=== PATIENT | female | born 1985 | race Caucasian/White ===

== ENCOUNTER 2017-10-16 10:44 | Emergency (ER) | payer BC | END 2017-10-16 12:16 | disposition home or self-care (01) | LOC: ERS 10:44 | DX: F41.9 Anxiety disorder, unspecified (principal); Z79.899 Other long term (current) drug therapy | CPT/HCPCS: 93005 ==

== ENCOUNTER 2020-03-20 10:45 | Outpatient (CLI) | payer BC | END 2020-03-20 10:46 | disposition home or self-care (01) | LOC: TBSIIMAG 10:45 | PROVIDERS: ATTEND Neurological Surgery | DX: M54.5 Low back pain (principal); R29.6 Repeated falls; R29.898 Other symptoms and signs involving the musculoskeletal system; M47.817 Spondylosis without myelopathy or radiculopathy, lumbosacral region; M51.26 Other intervertebral disc displacement, lumbar region; M51.36 Other intervertebral disc degeneration, lumbar region; M51.27 Other intervertebral disc displacement, lumbosacral region; M48.07 Spinal stenosis, lumbosacral region; Z98.890 Other specified postprocedural states | CPT/HCPCS: 72100; 72148 ==

== ENCOUNTER 2023-01-26 15:55 | Outpatient (CLI) | payer BC | END 2023-01-26 15:56 | disposition home or self-care (01) | LOC: SCSRAD 15:55 | PROVIDERS: ATTEND Internal Medicine Rheumatology | DX: M46.1 Sacroiliitis, not elsewhere classified (principal) | CPT/HCPCS: 72202 ==

== ENCOUNTER 2024-01-24 08:59 | Outpatient (CLI) | payer BC | END 2024-01-24 09:00 | disposition home or self-care (01) | LOC: SCSRAD 08:59 | PROVIDERS: ATTEND Internal Medicine Rheumatology | DX: L40.53 Psoriatic spondylitis (principal); M47.812 Spondylosis without myelopathy or radiculopathy, cervical region | CPT/HCPCS: 72052 ==